=== PATIENT | male | born 1950 | race Hispanic/Latino ===

== ENCOUNTER 2018-12-10 18:36 | Inpatient (IN) | payer MEDICARE ==
[2018-12-11] MEDS: DOLOPHINE PO SCH ×4 (00:01→20:59)
[2018-12-11] MEDS ORDERED: XANAX PO PRN (02:59)
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
[2018-12-11] MEDS: BABY ASPIRIN PO SCH (09:33)
[2018-12-11] MEDS: ZESTRIL PO SCH (09:34)
[2018-12-11] MEDS: FEOSOL PO SCH ×2 (09:34→21:05)
[2018-12-11] MEDS: COREG PO SCH ×2 (09:40→21:04)
[2018-12-11] MEDS: MOBIC PO SCH (09:41)
[2018-12-11] MEDS: CORDARONE PO SCH ×2 (09:43→21:05)
[2018-12-11] MEDS: CYMBALTA PO SCH (09:50)
[2018-12-11] MEDS ORDERED: celeXA PO SCH (10:00)
[2018-12-11] MEDS: LASIX PO SCH (10:44)
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
[2018-12-11] MEDS ORDERED: HALFPRIN EC PO SCH (16:00)
[2018-12-11 20:59] LABS: Hematocrit 30.7 % (35.5-45.6); Hemoglobin 10.5 gm/dl (11.8-15.2); Mean Corpuscular HGB Conc 34 % (32-34); Mean Corpuscular Volume 89 fl (84-94); Platelet Count 284 K/mm3 (140-440); Red Blood Count 3.46 M/mm3 (3.65-5.03); Red Cell Distribution Width 16.1 % (13.2-15.2)
[2018-12-11 21:59] LABS: Albumin 2.9 g/dL (3.9-5); Calcium 9.3 mg/dL (8.4-10.2)
[2018-12-11] MEDS ORDERED: CORDARONE PO SCH (22:00)
[2018-12-11] MEDS ORDERED: FEOSOL PO SCH (22:00)
[2018-12-11] MEDS ORDERED: COREG PO SCH (22:00)
[2018-12-11 22:54] LABS: Chol/HDL Ratio 2.25 %
[2018-12-12] MEDS: DOLOPHINE PO SCH ×3 (08:37→20:54)
[2018-12-12] MEDS ORDERED: ZESTRIL PO SCH (10:00)
[2018-12-12] MEDS ORDERED: LASIX PO SCH (10:00)
[2018-12-12] MEDS: FEOSOL PO SCH ×2 (10:00→21:00)
[2018-12-12] MEDS: BABY ASPIRIN PO SCH (10:01)
[2018-12-12] MEDS: LASIX PO SCH (10:01)
[2018-12-12] MEDS: CORDARONE PO SCH ×2 (10:02→21:00)
[2018-12-12] MEDS: COREG PO SCH ×2 (10:02→21:00)
[2018-12-12] MEDS: ZESTRIL PO SCH (10:03)
[2018-12-12] MEDS: CYMBALTA PO SCH (10:03)
[2018-12-12] MEDS: MOBIC PO SCH (10:04)
--- NOTE | 2018-12-12 10:55 | Progress Note ---
Subjective Date of service: 12/12/18 Principal diagnosis: MDD Recurrent severe w/o psychosis, Opioid dependence Subjective Comment: Patient continues to feel anxious depressed and suicidal. He was not able to schedule an earlier appointment at the Methadone clinic where he usually gets his Methadone prescription. He feels unsafe being discharged today. He denies SI/HI/AVH/Paranoia. He is compliant with meds and denies side effects. Objective - Criteria for Continued Treatment Criteria for Continued Treatment: Improving Level of Functioning, Understanding Diagnosis and need for Medication, Improving Treatment / Medication Compliance, Stablizing Level of Functioning, Improving Emotional/Socia - Mental Status Mental Status: Alert - Objective Observation Participation Level: Moderate Assessment and Plan - Patient Problems (1) MDD (major depressive disorder), recurrent severe, without psychosis Current Visit: Yes Status: Acute (2) Anxiety Current Visit: Yes Status: Acute (3) Opioid use disorder Current Visit: Yes Status: Acute Plan to address problem: Plan Patient will be admitted for inpatient psychiatric evaluation, medication adjustment and close monitoring The patient's behavior, mood, sleep and appetite will be closely monitored. Patient will be enrolled in individual and group therapeutic sessions and encouraged to attend. Patient will be provided with a safe and structured environment. Patient's physical health needs will be addressed by the Hospitalist. Social Assessment will be completed and the Geoscience Technician will work with patient and family to ensure a suitable and safe disposition Medication adjustment will be made as clinically indicated Citalopram was discontinued yesterday. Will continue Cymbalta 60mg for depression and chronic pain Xanax was discontinued yesterday. Continue Clonazepam. Will taper off Clonazepam over the next few days. The patient agreed on the treatment plan, understood the risk, benefit, alternative treatment, potential consequence of no treatment, and gave informed consent.
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
[2018-12-13] MEDS: DOLOPHINE PO SCH ×3 (08:05→21:55)
[2018-12-13] MEDS: CORDARONE PO SCH ×2 (10:00→21:55)
[2018-12-13] MEDS: MOBIC PO SCH (10:01)
[2018-12-13] MEDS: FEOSOL PO SCH ×2 (10:02→21:56)
[2018-12-13] MEDS: BABY ASPIRIN PO SCH (10:02)
[2018-12-13] MEDS: CYMBALTA PO SCH (10:02)
[2018-12-13] MEDS: LASIX PO SCH (10:02)
[2018-12-13] MEDS: COREG PO SCH ×2 (10:03→23:43)
[2018-12-13] MEDS: ZESTRIL PO SCH (10:04)
[2018-12-14] MEDS: DOLOPHINE PO SCH ×3 (08:52→21:15)
[2018-12-14] MEDS: MOBIC PO SCH (09:45)
[2018-12-14] MEDS: FEOSOL PO SCH ×2 (09:45→21:16)
[2018-12-14] MEDS: COREG PO SCH ×2 (09:45→21:12)
[2018-12-14] MEDS: LASIX PO SCH (09:46)
[2018-12-14] MEDS: CYMBALTA PO SCH (09:46)
[2018-12-14] MEDS: ZESTRIL PO SCH (09:47)
[2018-12-14] MEDS: CORDARONE PO SCH ×2 (09:47→21:12)
[2018-12-14] MEDS: BABY ASPIRIN PO SCH (09:48)
[2018-12-15] MEDS: DOLOPHINE PO SCH ×3 (08:30→21:20)
[2018-12-15] MEDS: BABY ASPIRIN PO SCH (10:04)
[2018-12-15] MEDS: CYMBALTA PO SCH ×2 (10:05→12:39)
[2018-12-15] MEDS: COREG PO SCH ×2 (10:05→21:23)
[2018-12-15] MEDS: LASIX PO SCH (10:05)
[2018-12-15] MEDS: MOBIC PO SCH (10:06)
[2018-12-15] MEDS: CORDARONE PO SCH ×2 (10:07→21:23)
[2018-12-15] MEDS: ZESTRIL PO SCH (10:08)
[2018-12-15] MEDS: FEOSOL PO SCH ×2 (12:42→23:46)
--- NOTE | 2018-12-15 13:23 | Progress Note ---
Subjective Date of service: 12/13/18 Principal diagnosis: MDD Recurrent severe w/o psychosis, Opioid dependence Subjective Comment: Patient reports feeling better today. He feels unsafe being discharged today as he has no follow-up plan. He denies SI/HI/AVH/Paranoia. He is compliant with meds and denies side effects. Objective - Criteria for Continued Treatment Criteria for Continued Treatment: Improving Level of Functioning, Improving Treatment / Medication Compliance, Stablizing Level of Functioning, Improving Emotional/Socia - Mental Status Mental Status: Alert - Objective Observation Participation Level: Full Assessment and Plan - Patient Problems (1) MDD (major depressive disorder), recurrent severe, without psychosis Current Visit: Yes Status: Acute (2) Anxiety Current Visit: Yes Status: Acute (3) Opioid use disorder Current Visit: Yes Status: Acute Plan to address problem: Plan Patient will be admitted for inpatient psychiatric evaluation, medication adjustment and close monitoring The patient's behavior, mood, sleep and appetite will be closely monitored. Patient will be enrolled in individual and group therapeutic sessions and encouraged to attend. Patient will be provided with a safe and structured environment. Patient's physical health needs will be addressed by the Hospitalist. Social Assessment will be completed and the Cigar Wrapper Tender Automatic will work with patient and family to ensure a suitable and safe disposition Medication adjustment will be made as clinically indicated Will continue Cymbalta 60mg for depression and chronic pain Continue Clonazepam. The patient agreed on the treatment plan, understood the risk, benefit, a lternative treatment, potential consequence of no treatment, and gave informed consent.
--- NOTE | 2018-12-15 13:25 | Progress Note ---
Subjective Date of service: 12/14/18 Principal diagnosis: MDD Recurrent severe w/o psychosis, Opioid dependence Subjective Comment: Patient reports feeling better today. He feels unsafe being discharged today as he has no follow-up plan. He denies SI/HI/AVH/Paranoia. He is compliant with meds and denies side effects. Objective - Criteria for Continued Treatment Criteria for Continued Treatment: Improving Level of Functioning, Stablizing Level of Functioning, Improving Emotional/Socia - Mental Status Mental Status: Oriented x 3 - Objective Observation Participation Level: Full Assessment and Plan - Patient Problems (1) MDD (major depressive disorder), recurrent severe, without psychosis Current Visit: Yes Status: Acute (2) Anxiety Current Visit: Yes Status: Acute (3) Opioid use disorder Current Visit: Yes Status: Acute Plan to address problem: Plan Patient will be admitted for inpatient psychiatric evaluation, medication adjustment and close monitoring The patient's behavior, mood, sleep and appetite will be closely monitored. Patient will be enrolled in individual and group therapeutic sessions and encouraged to attend. Patient will be provided with a safe and structured environment. Patient's physical health needs will be addressed by the Hospitalist. Social Assessment will be completed and the Neuroscience Specialist will work with patient and family to ensure a suitable and safe disposition Medication adjustment will be made as clinically indicated Will continue Cymbalta 60mg for depression and chronic pain Continue Clonazepam. The patient agreed on the treatment plan, understood the risk, benefit, alternative treatment, potential consequence of no treatment, and gave informed consent.
--- NOTE | 2018-12-15 13:31 | Progress Note ---
Subjective Date of service: 12/15/18 Principal diagnosis: MDD Recurrent severe w/o psychosis, Opioid dependence Subjective Comment: Patient reports good mood. The [facility] has arranged a follow-up appointment for the patient at the Methadone clinic. The appointment is on . Patient is relieved that he has this appointment as he was very anxious about being discharged without a follow-up plan as to where he could get his Methadone. He denies SI/HI/AVH/Paranoia. He is compliant with meds and denies side effects. Will plan to discharge patient in am tomorrow so that he has enough time to get into the homeless [facility]. Patient will not be discharged today for safety reasons. Objective - Criteria for Continued Treatment Criteria for Continued Treatment: Improving Level of Functioning, Stablizing Level of Functioning, Improving Emotional/Socia - Mental Status Mental Status: Alert - Objective Observation Participation Level: Full Assessment and Plan - Patient Problems (1) MDD (major depressive disorder), recurrent severe, without psychosis Current Visit: Yes Status: Acute (2) Anxiety Current Visit: Yes Status: Acute (3) Opioid use disorder Current Visit: Yes Status: Acute Plan to address problem: Plan Patient will be admitted for inpatient psychiatric evaluation, medication adjustment and close monitoring The patient's behavior, mood, sleep and appetite will be closely monitored. Patient will be enrolled in individual and group therapeutic sessions and encouraged to attend. Patient will be provided with a safe and structured environment. Patient's physical health needs will be addressed by the Hospitalist. Social Assessment will be completed and the [facility] Picker will work with patient and family to ensure a suitable and safe disposition Medication adjustment will be made as clinically indicated The patient agreed on the treatment plan, understood the risk, benefit, alternative treatment, potential consequence of no treatment, and gave informed consent
[2018-12-16] MEDS: DOLOPHINE PO SCH ×2 (08:07→13:00)
[2018-12-16 08:32] VITALS: BP 126/60
[2018-12-16] MEDS: CYMBALTA PO SCH (09:12)
[2018-12-16] MEDS: ZESTRIL PO SCH (09:13)
[2018-12-16] MEDS: COREG PO SCH (09:13)
[2018-12-16] MEDS: CORDARONE PO SCH (09:13)
[2018-12-16] MEDS: LASIX PO SCH ×2 (09:13→09:17)
[2018-12-16] MEDS: FEOSOL PO SCH (09:13)
[2018-12-16] MEDS: BABY ASPIRIN PO SCH (09:14)
[2018-12-16] MEDS: MOBIC PO SCH (09:14)
--- NOTE | 2018-12-16 09:30 | Discharge Summary ---
Providers - Providers Date of Admission: 12/10/18 22:49 Date of discharge: 12/16/18 Attending physician: RODRIGO FIORE MD 12/10/18 19:08 Consult to Physician [CONS] Routine Comment: Consulting Provider: KANCHAN FABIAN Physician Instructions: Reason For Exam: MEDICAL MANAGEMENT H&P 12/11/18 15:47 Physical Therapy Evaluation and Treat [CONS] Routine Comment: Reason For Exam: gait evaluation/ambulatory dysfunction 12/11/18 15:49 Consult to Wound/ET Nurse [CONS] Routine Reason For Exam: wound eval Primary care physician: MANAGING JEWELER Hospitalization Reason for admission: He presents with depression, anxiety and suicidal thoughts. Admitting Diagnosis: F33.2 - MAJOR DEPRESSV DISORDER, RECURRENT SEVERE W/O PSYCH FEATURES Condition: Good Hospital course: The patient was provided inpatient psychiatric treatment with safe and supportive environment, group therapy, individual counseling, psychiatric medication, medication adjustment, adverse effect monitor, medical evaluation, medical treatment, social service assessment, family/social support meeting, placement assessment and psycho-education. The patients mood, anxiety, thoughts, stress management skill, cognition, impulse/anger control, motivation, understanding of disease, compliance to treatment and appreciation on family/social support are improved and stabilized. At the time of discharge, the patient had no suicidal ideas, no homicidal ideas, no aggressive thoughts, no endangering behavior and no debilitating adverse effects. The patient agreed on the treatment plan, understood the risk, benefit, alternative treatment, potential consequence of no treatment, and gave informed consent. The patient was advised to be compliant with medications, not to use drugs and not to drink alcohol. The patient understands that if suicidal ideas, homicidal ideas, or any endangering thoughts arise, the patient should immediately seek for emergent assistance including but not limited to crisis hot line and emergency room. Follow up with out-patient Psychiatrist and PCP within 14 - 21 days of discharge. Disposition: DC-01 TO HOME OR SELFCARE Allergies/Adverse Reactions: Allergies ceftaroline fosamil Allergy (Verified 12/10/18 18:55) Unknown Vital Signs: Last Vital Signs Temp 98.1 F 12/16/18 08:25 Pulse 68 12/16/18 09:13 Resp 18 12/16/18 08:25 BP 126/60 12/16/18 09:13 Pulse Ox 94 12/16/18 08:25 Last Lab: Laboratory Last Values WBC 6.1 K/mm3 (4.5-11.0) 12/11/18 20:28 RBC 3.46 M/mm3 (3.65-5.03) L 12/11/18 20:28 Hgb 10.5 gm/dl (11.8-15.2) L 12/11/18 20:28 Hct 30.7 % (35.5-45.6) L 12/11/18 20:28 MCV 89 fl (84-94) 12/11/18 20:28 MCH 30 pg (28-32) 12/11/18 20:28 MCHC 34 % (32-34) 12/11/18 20:28 RDW 16.1 % (13.2-15.2) H 12/11/18 20:28 Plt Count 284 K/mm3 (140-440) 12/11/18 20:28 Sodium 140 mmol/L (137-145) 12/11/18 20:28 Potassium 4.8 mmol/L (3.6-5.0) 12/11/18 20:28 Chloride 103.1 mmol/L (98-107) 12/11/18 20:28 Carbon Dioxide 27 mmol/L (22-30) 12/11/18 20:28 15 mmol/L 12/11/18 20:28 BUN 17 mg/dL (9-20) 12/11/18 20:28 1.3 mg/dL (0.8-1.5) 12/11/18 20:28 Estimated GFR 55 ml/min 12/11/18 20:28 13 % 12/11/18 20:28 Glucose 103 mg/dL (75-100) H 12/11/18 20:28 5.8 % (4-6) 12/11/18 20:34 Calcium 9.3 mg/dL (8.4-10.2) 12/11/18 20:28 0.20 mg/dL (0.1-1.2) 12/11/18 20:28 AST 15 units/L (5-40) 12/11/18 20:28 ALT 11 units/L (7-56) 12/11/18 20:28 104 units/L (35-129) 12/11/18 20:28 6.7 g/dL (6.3-8.2) 12/11/18 20:28 2.9 g/dL (3.9-5) L 12/11/18 20:28 0.8 % 12/11/18 20:28 Triglycerides 53 mg/dL (2-149) 12/11/18 20:28 Cholesterol 135 mg/dL (50-199) 12/11/18 20:28 70 mg/dL (50-130) 12/11/18 20:28 60 mg/dL (40-59) H 12/11/18 20:28 2.25 % 12/11/18 20:28 TSH 1.040 mlU/mL (0.270-4.200) 12/11/18 20:35 - Discharge Diagnoses (1) MDD (major depressive disorder), recurrent severe, without psychosis Status: Acute (2) Anxiety Status: Acute (3) Opioid use disorder Status: Acute Core Measure Documentation - Palliative Care Palliative Care/ Comfort Measures: Not Applicable - Core Measures Any of the following diagnoses?: none - VTE Discharge Requirements Deep Vein Thrombosis/Pulmonary Embolism Present on Admission: No Has pt received <5 days of overlap therapy or INR<2.0: No Anticoagulant overlap therapy prescribed at discharge: No Contraindication No Overlap Therapy order at DC: Not Indicated Exam - Constitutional Vitals: Temp Pulse Resp BP Pulse Ox 98.1 F 68 18 126/60 94 12/16/18 08:25 12/16/18 09:13 12/16/18 08:25 12/16/18 09:13 12/16/18 08:25 General appearance: Present: no acute distress, well-nourished - EENT Eyes: Present: PERRL, EOM intact ENT: hearing intact, clear oral mucosa - Neck Neck: Present: supple, normal ROM - Respiratory Respiratory effort: normal Plan Activity: advance as tolerated Weight Bearing Status: Weight Bear as Tolerated Diet: regular Follow up with: PRIMARY CARE,MD [Primary Care Provider] - 7 Days Prescriptions: Methadone [Dolophine] 10 mg PO Q8H #6 tablet
== END 2018-12-16 13:00 | disposition home or self-care (01) | DRG 885 ==
LOC: 3A 18:36 → UNDOADMIN 18:36 → 5A 22:49 → EEVIPCON 22:49 → 5A 23:26
PROVIDERS: ADMIT Psychiatry & Neurology Psychiatry; ATTEND Psychiatry & Neurology Psychiatry
DX: F33.2 Major depressive disorder, recurrent severe without psychotic features (principal); R53.2 Functional quadriplegia; R45.851 Suicidal ideations; G93.40 Encephalopathy, unspecified; G12.21 Amyotrophic lateral sclerosis; E44.0 Moderate protein-calorie malnutrition; Z68.1 Body mass index [BMI] 19.9 or less, adult; F41.9 Anxiety disorder, unspecified; F11.90 Opioid use, unspecified, uncomplicated; M54.9 Dorsalgia, unspecified; I10 Essential (primary) hypertension; G89.4 Chronic pain syndrome; D63.8 Anemia in other chronic diseases classified elsewhere; I48.91 Unspecified atrial fibrillation; Z86.73 Personal history of transient ischemic attack (TIA), and cerebral infarction without residual deficits; Z82.49 Family history of ischemic heart disease and other diseases of the circulatory system; Z79.899 Other long term (current) drug therapy; Z79.82 Long term (current) use of aspirin
CPT/HCPCS: 36415; 80053; 80061; 83036; 84443; 85027; G0378